=== PATIENT | female | born 1935 | race Hispanic/Latino ===

== ENCOUNTER 2018-03-15 14:48 | Outpatient (CLI) | payer MEDICARE ==
--- NOTE | 2018-03-15 15:21 | XRay Report ---
XRAYCERVICAL SPINE THREE VIEWS: 03/15/18 14:48:00 CLINICAL: Neck pain with radiation. FINDINGS: Straightening of C-spine. Extensive degenerative disc disease which is worse at C5-6, C6-7 and C7-T1. A large anterior osteophyte at C5-6. Grade I C7-T1 spondylolisthesis. The rest of the bodies are in normal alignment. No fracture. Severe multilevel facet joint disease. Normal soft tissues and airway. IMPRESSION: Extensive degenerative disc disease and facet joint disease. The osteophytes at C5-6 are large enough to possibly impair swallowing. Grade I C7-T1 spondylolisthesis.
== END 2018-03-15 14:49 | disposition home or self-care (01) ==
LOC: SPVIMAG 14:48
PROVIDERS: ATTEND Nurse Practitioner
DX: M50.33 Other cervical disc degeneration, cervicothoracic region (principal); M50.222 Other cervical disc displacement at C5-C6 level; M50.223 Other cervical disc displacement at C6-C7 level; M43.13 Spondylolisthesis, cervicothoracic region
CPT/HCPCS: 72040

== ENCOUNTER 2018-03-18 14:11 | Outpatient (CLI) | payer MEDICARE ==
--- NOTE | 2018-03-23 12:53 | XRay Report ---
Lumbar spine: Back pain. AP and lateral views demonstrates a mild levoscoliosis in the mid lumbar region. There is a 1 cm anterior L4 subluxation on L5. Diffuse anterior and posterior spondylosis is noted. Mild anterior wedging is present in the L1 and L2 bodies. The interspaces are diffusely narrowed but most severe from L3-S1. There is diffuse apophyseal sclerosis from L3-S1. The bones are generally demineralized. There has been injection of opaque material in both SI joints. In the frontal projection the lumbar spine including the opaque material is relatively unchanged from a bone density exam in January 2016. Impression: 1. Diffuse spondylosis and discogenic narrowing as detailed above. 2. L4 subluxation. 3. Bone demineralization..
== END 2018-03-18 14:12 | disposition home or self-care (01) ==
LOC: SPVIMAG 14:11
PROVIDERS: ATTEND Nurse Practitioner
DX: S33.140A Subluxation of L4/L5 lumbar vertebra, initial encounter (principal); M41.86 Other forms of scoliosis, lumbar region; M81.0 Age-related osteoporosis without current pathological fracture; X58.XXXA Exposure to other specified factors, initial encounter; Y93.89 Activity, other specified; Y92.89 Other specified places as the place of occurrence of the external cause; Y99.8 Other external cause status
CPT/HCPCS: 72100

== ENCOUNTER 2018-04-13 11:10 | Outpatient (CLI) | payer MEDICARE ==
--- NOTE | 2018-04-13 13:50 | Cat Scan Report ---
CT scan of abdomen and pelvis with IV contrast: History: Right upper quadrant abdominal pain. Findings: Normal lung bases. No pleural pericardial effusion. Small sliding hiatal hernia. Normal liver spleen and pancreas. The gallbladder is not visualized probably contracted. Normal Adrenals and kidney parenchyma and bladder. No free intraperitoneal fluid or air. No evidence of adenopathy. Normal aorta. Normal appendix. Gaseous colon with minimal stool in colon. Few scattered diverticula sigmoid without evidence of colitis. Impression: Small sliding hiatal hernia. Gallbladder not visualized. Diverticulosis sigmoid colon
== END 2018-04-13 11:11 | disposition home or self-care (01) ==
LOC: CT 11:10
PROVIDERS: ATTEND Nurse Practitioner
DX: K57.30 Diverticulosis of large intestine without perforation or abscess without bleeding (principal); K44.9 Diaphragmatic hernia without obstruction or gangrene
CPT/HCPCS: 74176